=== PATIENT | female | born 1950 | race Caucasian/White ===

== ENCOUNTER 2024-08-17 13:00 | Outpatient (RCR) | payer MEDICARE, OTHER, SELFPAY ==
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
== END 2024-08-17 19:00 | disposition home or self-care (01) ==
LOC: PT 13:00
PROVIDERS: PCP Physician Assistant; Referring Provider Urology; Visit Provider Urology
DX: N81.89 Other female genital prolapse (principal)
CPT/HCPCS: 97162; 97530